=== PATIENT | male | born 2000 | race Caucasian/White ===

== ENCOUNTER 2021-02-15 23:43 | Emergency (ER) | payer MEDICAID ==
[~2021-02-15] VITALS: Ht 182.9 cm; Wt 81.9 kg
[2021-02-15 23:52] VITALS: BP 130/75
== END 2021-02-16 02:23 | disposition left against medical advice (07) ==
LOC: ER 23:43
DX: R68.89 Other general symptoms and signs (principal); Z53.21 Procedure and treatment not carried out due to patient leaving prior to being seen by health care provider
CPT/HCPCS: 93005

== ENCOUNTER 2021-12-03 19:35 | Emergency (ER) | payer MEDICAID ==
[~2021-12-03] VITALS: Ht 182.9 cm; Wt 80.0 kg
[2021-12-03] MEDS ORDERED: MAGNESIUM/ALUMINUM HYDROXIDE/SIMETHICONE 30ML UDC PO STA (20:33)
[2021-12-03] MEDS ORDERED: FAMOTIDINE 20MG/2ML VIAL IV STA (20:33)
[2021-12-03] MEDS ORDERED: SODIUM CHLORIDE 0.9% 1,000 ML IV ONE (20:45)
[2021-12-03 20:59] LABS: HEMATOCRIT. 48.1 % (42.0-52.0); HEMOGLOBIN. 17.1 g/dL (14.0-18.0); MEAN CORPUSCULAR HEMOGLOBIN 31.7 pg (28.0-32.0); MEAN CORPUSCULAR VOLUME 89.1 fL (80.0-94.0); MEAN PLATELET VOLUME 9.9 fl (7.4-10.4); PLATELET 212 x1000/uL (130-400); RED CELL DISTRIBUTION WIDTH 13.3 % (11.6-14.6)
[2021-12-03 21:05] LABS: CHLORIDE 106 mEq/L (98-107)
[2021-12-03 21:13] LABS: PLATELET ESTIMATE NORMAL
[2021-12-03 22:18] LABS: CLARITY URINE CLEAR (CLEAR); COLOR URINE YELLOW (YELLOW); KETONES URINE 3+ (NEGATIVE); LEUKOCYTE ESTERASE URINE NEGATIVE (NEGATIVE); NITRITE URINE NEGATIVE (NEGATIVE); OCCULT BLOOD URINE NEGATIVE (NEGATIVE); PROTEIN URINE NEGATIVE (NEGATIVE); SPECIFIC GRAVITY URINE 1.027 (1.005-1.030); UROBILINOGEN URINE 0.2 E.U./dL (0.2-1.0)
[2021-12-03] MEDS ORDERED: METOCLOPRAMIDE HCL 10MG/2ML VIAL IV NR (22:30)
[2021-12-03] MEDS ORDERED: MORPHINE SULFATE 4 MG/ML CPJ (NOT FOR IM USE) IV NR (22:30)
[2021-12-04] MEDS ORDERED: MAG-55 MT (00:23)
[2021-12-04] MEDS ORDERED: ONDA4TAB5 MT (00:23)
[2021-12-04 00:47] VITALS: BP 131/81
== END 2021-12-04 00:49 | disposition home or self-care (01) ==
LOC: ER 19:35
DX: R10.13 Epigastric pain (principal); K76.0 Fatty (change of) liver, not elsewhere classified; R16.1 Splenomegaly, not elsewhere classified; R11.2 Nausea with vomiting, unspecified; F12.10 Cannabis abuse, uncomplicated; R03.0 Elevated blood-pressure reading, without diagnosis of hypertension; F10.10 Alcohol abuse, uncomplicated; Y90.9 Presence of alcohol in blood, level not specified
CPT/HCPCS: 36415; 71045; 76700; 80053; 81003; 83690; 85025; 96361; 96374; 96375; 99285; J2270; J2765; J3490; J7030